=== PATIENT | male | born 1995 | race Caucasian/White ===

== ENCOUNTER 2020-11-18 10:19 | Emergency (ER) | payer OTHER ==
[~2020-11-18] VITALS: Ht 188 cm; Wt 100.0 kg
[2020-11-18 10:19] VITALS: BP 136/81
--- NOTE | 2020-11-18 10:57 | PHYS DOC ---
General Adult HPI: HPI: Patient is a 24-year-old male being seen in the ER for low back pain after lifting up 35 pounds today. Patient reports following the heavy lifting he felt a sharp pain. He rates his pain 9 out of 10. It radiates down his right leg. No treatment prior to arrival. Patient denies loss of bowel or bladder, saddle anesthesias, numbness in his lower extremities. Review of Systems: Review of Systems: 14 body systems of the review of systems have been reviewed. See HPI for pertinent positive and negative responses, otherwise all other systems are negative, nonpertinent or noncontributory Physical Exam: PE: Constitutional: Well developed, well nourished, no acute distress, non-toxic appearance. [] HENT: Normocephalic, atraumatic, bilateral external ears normal, oropharynx moist, no oral exudates, nose normal. [] Eyes: PERRL, EOMI, conjunctiva normal, no discharge. [] Neck: Normal range of motion, no bony cervical spinal tenderness, supple, no stridor. [] Cardiovascular:Heart rate regular rhythm, no murmur [] Lungs & Thorax: Bilateral breath sounds clear to auscultation [] Abdomen: Bowel sounds normal, soft, no tenderness, no masses, no pulsatile masses. [] Skin: Warm, dry, no erythema, no rash. [] Back: Bilateral lumbar paraspinal tenderness with palpation, no bony spinal tenderness, muscle spasm of right lumbar Extremities: No tenderness, no cyanosis, no clubbing, ROM intact, no edema. [] Neurologic: Alert and oriented X 3, normal motor function, normal sensory function, no focal deficits noted. [] Psychologic: Affect normal, judgement normal, mood normal. [] EKG: EKG: [] Radiology/Procedures: Radiology/Procedures: PROCEDURE: CT LUMBAR SPINE WO CONTRAST INDICATION: Reason: low back pain post heavy lifting / Spl. Instructions: / History: . COMPARISON: None. TECHNIQUE: Axial CT images obtained through the lumbar spine. One or more of the following individualized dose reduction techniques were utilized for this examination: 1. Automated exposure control; 2. Adjustment of the mA and/or kV according to patient size; 3. Use of iterative reconstruction technique. FINDINGS: No significant malalignment. No acute fracture is seen. There is some degenerative changes of the lumbar spine with disc protrusions and mild osteophyte formation at vertebral body endplates as well as ligamentum flavum and facet hypertrophy. For example at L2-3 there is a broad-based posterior disc protrusion with mild mass effect on the anterior aspect of the thecal sac and lateral recesses as well as facet and ligamentum flavum hypertrophy. Neural foramina are patent. At L3-4 there is facet and ligamentum flavum hypertrophy as well as a mild broad-based posterior disc protrusion with mass effect on the thecal sac with mild trefoil narrowing. Neural foramina are patent. At L4-5 there is broad-based posterior disc protrusion and osteophyte fo rmation as well as ligamentum flavum and facet hypertrophy with mild trefoil narrowing of central canal. Neural foramina are patent. IMPRESSION: * Degenerative changes of the lumbar spine with multiple disc protrusions and osteophyte formation as well as ligamentum flavum and facet hypertrophy. * No acute fracture or dislocation. Electronically signed by: Jose Borden MD (11/18/2020 11:28 AM) [id number] DICTATED AND SIGNED BY: JOSE BRODEN MD DATE: 11/18/20 112 CC: NING CABRERA APRN; PCP,UNKNOWN ~MTH0 0 [] Heart Score: C/O Chest Pain: No Risk Factors: Risk Factors: DM, Current or recent (<one month) smoker, HTN, HLP, family history of CAD, obesity. Risk Scores: Score 0 - 3: 2.5% MACE over next 6 weeks - Discharge Home Score 4 - 6: 20.3% MACE over next 6 weeks - Admit for Clinical Observation Score 7 - 10: 72.7% MACE over next 6 weeks - Early Invasive Strategies Course & Med Decision Making: Course & Med Decision Making Pertinent Labs and Imaging studies reviewed. (See chart for details) [] Patient is a 24-year-old male being seen in the ER for low back pain after lifting 35 pounds today. Patient had a CT scan of his lumbar spine that showed no acute findings. Patient treated with Toradol and orphenadrine injection. Following treatment, patient reports improvement in his symptoms and he is resting comfortably in the chair. Patient discharged home to take anti- inflammatory medications and he was prescribed muscle relaxers. Patient educated that this may cause drowsiness. Patient to follow-up with his primary care provider. I discussed with patient all findings and diagnostic testing as well as the need to follow-up with PCP for further evaluation and treatment or return to the ER if any new or worsening symptoms. Strict return precautions were also discussed at length. Patient voiced understanding and agreement with the plan. Patient is hemodynamically stable at the time of disposition. Dragon Disclaimer: Dragon Disclaimer: This electronic medical record was generated, in whole or in part, using a voice recognition dictation system. Departure Departure: Impression: Primary Impression: Muscle spasm Additional Impression: Low back pain Qualified Codes: M54.41 - Lumbago with sciatica, right side Disposition: HOME / SELF CARE / HOMELESS Condition: GOOD Referrals: PCP,UNKNOWN (PCP) Patient Instructions: Back Pain, Adult Additional Instructions: You were seen in the ER for low back pain. A CT scan was performed of your lumbar spine and it was negative for any acute findings. You were treated in the ER with an anti-inflammatory medication and muscle relaxer. You will be discharged home with a muscle relaxer. Please take these as directed. Please be aware that the Flexeril may cause drowsiness. You can also take anti- inflammatory medication such as ibuprofen and naproxen. Do not take this medication when you need to be alert and do not take with any alcohol. Please follow-up with your primary care provider tomorrow regarding your ER visit. If you develop worsening of your back pain, loss of bowel or bladder, numbness in your extremities or pelvis please return to the ER immediately. EMERGENCY DEPARTMENT GENERAL DISCHARGE INSTRUCTIONS Thank you for coming to [facility] (ED) today and trusting us with you care. We trust that you had a positivie experience in our Emergency Department. If you wish to speak to the department management, you may call the director at [phone]. YOUR FOLLOW UP INSTRUCTIONS ARE FOLLOWS: 1. Do you have a private Doctor? If you do not have a private doctor, please ask for a resource list of physicians or clinics that may be able to assist you with follow up care. 2. The Emergency Physician has interpreted your x-rays. The X-Ray specialist will also review them. If there is a change in the findings, you will be notified in 48 hours when at all possible. 3. A lab test or culture has been done, your results will be reviewed and you will be notified if you need a change in treatment. ADDITIONAL INSTRUCTIONS AND INFORMATION: 1. Your care today has been supervised by a physician who is specially trained in emergency care. Many problems require more than one evaluation for a complete diagnosis and treatment. We recommend that you schedule your follow up appointment as recommended to ensure complete treatment of you illness or injury. If you are unable to obtain follow up care and continue to have a problem, or if your condition worsens, we recommend that you return to the ED. 2. We are not able to safely determine your condition over the phone nor are we able to give sound medical advice over the phone. For these safety reasons, if you call for medical advice we will ask you to come to the ED for further evaluation. 3. If you have any questions regarding these discharge instructions please call the ED at [phone]. SAFETY INFORMATION: In the interest of safety, wellness, and injury prevention; we encourage you to wear your sealbelt, if you smoke; quite smoking, and we encourage family to use a protective helmet for bicycling and other sporting events that present an increased risk for head injury. IF YOUR SYMPTOMS WORSEN OR NEW SYMPTOMS DEVELOP, OR YOU HAVE CONCERNS ABOUT YOUR CONDITION; OR IF YOUR CONDITION WORSENS WHILE YOU ARE WAITING FOR YOUR FOLLOW UP APPOINTMENT; EITHER CONTACT YOUR PRIMARY CARE DOCTOR, THE PHYSICIAN WHOSE NAME AND NUMBER YOU WERE GIVEN, OR RETURN TO THE ED IMMEDIATELY. Scripts Cyclobenzaprine Hcl (CYCLOBENZAPRINE HCL) 5 Mg Tablet 1 TAB PO TID for muscle spasm for 5 Days, #15 TAB 0 Refills Prov: NING CABRERA APRN 11/18/20 NING CABRERA APRN Nov 18, 2020 10:57
[2020-11-18] MEDS ORDERED: ORPHENADRINE CITRATE 60 MG/2 ML VIAL. ONE (11:12)
[2020-11-18] MEDS ORDERED: KETOROLAC 60 MG/2 ML VIAL. IM ONE (11:12)
[2020-11-18] MEDS: KETOROLAC 60 MG/2 ML VIAL. IM ONE (11:17)
[2020-11-18] MEDS: ORPHENADRINE CITRATE 60 MG/2 ML VIAL. IM ONE (11:17)
--- NOTE | 2020-11-18 11:30 | RAD ---
INDICATION: Reason: low back pain post heavy lifting / Spl. Instructions: / History: . COMPARISON: None. TECHNIQUE: Axial CT images obtained through the lumbar spine. One or more of the following individualized dose reduction techniques were utilized for this examinat ion: 1. Automated exposure control; 2. Adjustment of the mA and/or kV according to patient size; 3 . Use of iterative reconstruction technique. FINDINGS: No significant malalignment. No acute fracture is seen. There is some degenerative changes of the lumbar spine with disc protrusions and mild osteophyte form ation at vertebral body endplates as well as ligamentum flavum and facet hypertrophy. For example at L2-3 there is a broad-based posterior disc protrusion with mild mass effect on the anterior aspect of the thecal sac and lateral recesses as well as facet and ligamentum flavum hypertrophy. Neural june kobe are patent. At L3-4 there is facet and ligamentum flavum hypertrophy as well as a mild broad-base d posterior disc protrusion with mass effect on the thecal sac with mild trefoil narrowing. Neural fo ramina are patent. At L4-5 there is broad-based posterior disc protrusion and osteophyte formation as well as ligamentum flavum and facet hypertrophy with mild trefoil narrowing of central canal. Neural foramina are patent. IMPRESSION: * Degenerative changes of the lumbar spine with multiple disc protrusions and osteophyte formation a s well as ligamentum flavum and facet hypertrophy. * No acute fracture or dislocation. Electronically signed by: Wilfrido Borden MD (11/18/2020 11:28 AM) [id number]
[2020-11-18] MEDS ORDERED: CYCL5TAB PO (12:00)
== END 2020-11-18 12:33 | disposition home or self-care (01) ==
LOC: ER 10:19
DX: M54.41 Lumbago with sciatica, right side (principal); M62.830 Muscle spasm of back
CPT/HCPCS: 72131; 96372; 99284; J1885; J2360

== ENCOUNTER 2020-12-09 22:18 | Emergency (ER) | payer OTHER ==
[~2020-12-09] VITALS: Ht 188 cm; Wt 106.0 kg
[~2020-12-09 22:18] MED LIST: CYCL5TAB PO
[2020-12-09 22:33] VITALS: BP 121/76
--- NOTE | 2020-12-09 22:46 | PHYS DOC ---
Past History Past Surgical History: No Surgical History Alcohol Use: None Adult General Chief Complaint Chief Complaint: FEVER HPI HPI Patient is a 25-year-old male, otherwise healthy who presents with a chief complaint of fever which came on shortly after getting his second Covid shot today. Denies any headache, pain or trouble swallowing, chest pain, shortness of breath, abdominal pain, nausea, vomiting, diarrhea. States he took 325 mg of Tylenol earlier but still has some body aches that came on after as well. 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 States he is able to eat and drink normally. States he is making urine and stool normally for him. Review of Systems Review of Systems Review of systems otherwise unremarkable except noted in HPI Physical Exam Physical Exam Constitutional: Well developed, well nourished, no acute distress, non-toxic appearance. [] HENT: Normocephalic, atraumatic, bilateral external ears normal, oropharynx moist, no oral exudates, nose normal. [] Eyes: conjunctiva normal, no discharge. [] Neck: Normal range of motion, no tenderness, supple, no stridor. [] Cardiovascular:Heart rate regular rhythm, no murmur [] Lungs & Thorax: Bilateral breath sounds clear to auscultation [] Abdomen: soft, no tenderness, no masses, no pulsatile masses. [] Skin: Warm, dry, no erythema, no rash. [] Neurologic: Alert and oriented X 3, normal motor function, normal sensory function, no focal deficits noted. [] Psychologic: Affect normal, judgement normal, mood normal. [] EKG EKG [] Radiology/Procedures Radiology/Procedures [] Heart Score C/O Chest Pain: No Risk Factors: Risk Factors: DM, Current or recent (<one month) smoker, HTN, HLP, family history of CAD, obesity. Risk Scores: Risk Factors: DM, Current or recent (<one month) smoker, HTN, HLP, family history of CAD, obesity. Course & Med Decision Making Course & Med Decision Making Patient is a 25-year-old male who presents with complaints of fevers at home to 100 and some body aches after getting his second Covid shot this morning Vital signs notable for sinus tachycardia. Physical exam noted above. Patient given Percocet, ibuprofen and Benadryl. Discussed all findings with patient. Discussed symptom management at home. Advised to call his primary care physician in the morning to update. Gave return precautions to the ED. Patient grateful, verbalized understanding and agreed with plan of discharge. Charles Disclaimer Charles Disclaimer This electronic medical record was generated, in whole or in part, using a voice recognition dictation system. Departure Departure: Impression: Primary Impression: Post-vaccination fever Disposition: HOME / SELF CARE / HOMELESS Condition: GOOD Referrals: PCP,UNKNOWN (PCP) AJ ROPER MD Patient Instructions: Fever Additional Instructions: Thank you for coming into the emergency department tonight and allowing us to take care of you. Please read all the attached information carefully to go over some of the things we discussed. As we discussed, after vaccine you can get symptoms that are similar to other viral illnesses such as the flu. Please begin a Tylenol, ibuprofen and Benadryl regimen as we discussed. Please be sure to eat and drink plenty of fluids. Please call your doctor in the morning to update on ED visit and set up a follow-up visit. Please come back to the ED with new or concerning symptoms as discussed. BREANNE GUILLEN MD Dec 09, 2020 22:46
[2020-12-09] MEDS: diphenhydrAMINE HCL 25 MG CAPSULE PO ONE (23:07)
[2020-12-09] MEDS: IBUPROFEN 600 MG TABLET. PO ONE (23:08)
[2020-12-09] MEDS: oxyCODONE/APAP 5/325 1 TAB TABLET PO ONE (23:08)
== END 2020-12-09 23:12 | disposition home or self-care (01) ==
LOC: ER 22:18
DX: R50.83 Postvaccination fever (principal); T50.B95A Adverse effect of other viral vaccines, initial encounter; Y92.89 Other specified places as the place of occurrence of the external cause
CPT/HCPCS: 99284; Q0163

== ENCOUNTER 2021-04-18 12:16 | Emergency (ER) | payer OTHER ==
[~2021-04-18] VITALS: Ht 185.4 cm; Wt 105.0 kg
[2021-04-18] MEDS ORDERED: HYDROcodone/APAP 5/325MG 1 TAB TABLET PO ONE (12:30)
--- NOTE | 2021-04-18 12:59 | RAD ---
EXAM: Left ankle, 3 views; left foot, 3 views; left tibia and fibula, 2 views; left knee, 4 views. HISTORY: Trauma. Pain. COMPARISON: None. FINDINGS: Left ankle and foot: 3 views of the left ankle and foot are obtained. There is no fracture, dislocati on or subluxation. The ankle mortise is intact. There is no osteochondral lesion. There is ossific de nsity along the anterior talus likely due to an osseous ridge. No avulsion fracture is seen. Left tibia and fibula: 2 views of the tibia and fibula are obtained. There is no fracture, dislocatio n or subluxation. There is no periosteal reaction or suspicious osseous lesion. Left knee: 4 views of the left knee are obtained. There is no fracture, dislocation or subluxation. T here is no joint effusion. There is a tiny suspected soft tissue calcification or ossicle inferior to the patella. IMPRESSION: No acute osseous finding. Electronically signed by: Elyssa Barba MD (04/18/2021 12:57 PM) [id number]
--- NOTE | 2021-04-18 13:14 | PHYS DOC ---
Past History Past Surgical History: No Surgical History Alcohol Use: Occasionally General Adult EDM: Chief Complaint: ANKLE PROBLEM HPI: HPI: 25 yo M with no significant PMH presents the ED with complaints of left lateral ankle pain after patient rolled his ankle while running outside just prior to arrival. Reports pain is worse with weightbearing, plantarflexion and eversion. No prior history of antibiotics or fluoroquinolones. H/o prior left ankle sprain-no h/o lower extremity fracture. Reports mild medial left knee pain, no hip pain. Reports he fell and hit his head did not lose consciousness. Is not influence of any alcohol or drugs. Takes no routinely prescribed medications. Review of Systems: Review of Systems: Constitutional: Denies fever or chills Eyes: Denies change in visual acuity HENT: Denies nasal congestion or sore throat Respiratory: Denies cough or shortness of breath Cardiovascular: Denies chest pain or edema GI: Denies nausea or vomiting : Denies incontinence or saddle anesthesia Musculoskeletal: Denies back pain or joint pain Integument: Denies rash or diaphoresis Neurologic: Denies headache or neck pain Endocrine: Denies polyuria or polydipsia Lymphatic: Denies swollen glands Psychiatric: Denies depression or anxiety Current Medications: Current Meds: Current Medications Medications (Trade) Dose Ordered Sig/Yovany Start Time Stop Time Status Last Admin Dose Admin Acetaminophen/ Hydrocodone Bitart (Lortab 5/325) 1 tab 1X ONCE 04/18/21 12:30 04/18/21 12:32 DC 04/18/21 12:34 1 TAB Allergies: Allergies: Allergies Coded Allergies Type Severity Reaction Last Updated Verified No Known Drug Allergies 04/18/21 No Physical Exam: PE: Constitutional: Well developed, well nourished, no acute distress, non-toxic appearance. HENT: Normocephalic, atraumatic, Eyes: EOMI, conjunctiva normal, no discharge. Neck: Normal range of motion, supple, Cardiovascular: S1/2 present, regular rhythm Lungs & Thorax: Speaking in full sentences, bilateral equal chest rise, no tachypnea or increased work of breathing Abdomen: soft, no hip tenderness Skin: Warm, dry, no erythema, no rash. [] Back: No midline spinal step-offs or tenderness, no CVA tenderness. [] Extremities: Tender and swollen left lateral malleoli-present with a golf ball in size, nonreproducible left medial knee pain, no ligamentous laxity on range of motion of left knee, is able to plantarflex/dorsiflex/sheela and invert left ankle, DP and PT pulses intact no cyanosis, no lower extremity edema, no fibular head tenderness, Neurologic: Alert and oriented X 3, no focal deficits noted. [] Psychologic: Affect normal, judgement normal, mood normal. [] Current Patient Data: Vital Signs: Vital Signs Date Time Temp Pulse Resp B/P (MAP) Pulse Ox O2 Delivery O2 Flow Rate FiO2 04/18/21 12:17 97.7 92 18 144/84 (104) 98 Room Air EKG: EKG: [] Radiology/Procedures: Radiology/Procedures: IMAGING REPORT Signed PATIENT: VIK MOODY ACCOUNT: [id number] : 1995 LOCATION: ER AGE: 25 SEX: M EXAM STATUS: REG ER ORD. PHYSICIAN: DEE CHEUNG DO REASON: left ankle pain PROCEDURE: ANKLE LEFT 3V EXAM: Left ankle, 3 views; left foot, 3 views; left tibia and fibula, 2 views; left knee, 4 views. HISTORY: Trauma. Pain. COMPARISON: None. FINDINGS: Left ankle and foot: 3 views of the left ankle and foot are obtained. There is no fracture, dislocation or subluxation. The ankle mortise is intact. There is no osteochondral lesion. There is ossific density along the anterior talus likely due to an osseous ridge. No avulsion fracture is seen. Left tibia and fibula: 2 views of the tibia and fibula are obtained. There is no fracture, dislocation or subluxation. There is no periosteal reaction or suspicious osseous lesion. Left knee: 4 views of the left knee are obtained. There is no fracture, dislocation or subluxation. There is no joint effusion. There is a tiny suspected soft tissue calcification or ossicle inferior to the patella. IMPRESSION: No acute osseous finding. Electronically signed by: Elyssa Greenwood MD (04/18/2021 12:57 PM) [id number] DICTATED AND SIGNED BY: ELYSSA GREENWOOD MD DATE: 04/18/21 1142 CC: SABINA HENNESSY MD; VOHS,DEE M DO ~MTH0 0 Heart Score: C/O Chest Pain: No Risk Factors: Risk Factors: DM, Current or recent (<one month) smoker, HTN, HLP, family history of CAD, obesity. Risk Scores: Score 0 - 3: 2.5% MACE over next 6 weeks - Discharge Home Score 4 - 6: 20.3% MACE over next 6 weeks - Admit for Clinical Observation Score 7 - 10: 72.7% MACE over next 6 weeks - Early Invasive Strategies Course & Med Decision Making: Course & Med Decision Making Pertinent Labs and Imaging studies reviewed. (See chart for details) Concern for left ankle sprain, no obvious fracture. No signs of head trauma. Pt provided with splint and crutches. Recommend conservative management, rice instructions and otc analgesia. Will discharge home with strict ED return precautions were given for severe pain, neurologic deficits or repeat injury. Encouraged urgent outpatient follow-up with PMD and orthopedic surgery. Life- threatening processes were considered but are low suspicion at this time, given history, physical exam and ED workup. Pt was educated on all prescription medications and adverse effects. All patient's questions were answered and pt was stable at time of discharge. Life/limb-threatening differential includes but is not limited to, trauma (fracture, dislocation, laceration, compartment syndrome, tendon or ligament injury), neurovascular injury or deficitcva/tia, infection (osteomyelitis, abscess, cellulitis, septic arthritis, necrotizing fasciitis), deep vein thrombosis, renal/cardiac/liver disease, medication adverse effect, lymphedema/anasarca, vascular insufficiency or malignancy, I have spoken with the patient and/or caregivers. I explained the patient's condition, diagnoses and treatment plan based on the information available to me at this time. I have answered the patient and/or caregiver's questions and addressed any concerns. The patient and/or caregivers have a good understanding of patient's diagnosis, condition and treatment plan as can be expected at this point. Vital signs have been stable. Patient's condition is stable and appropriate for discharge from the emergency department. Patient will pursue further outpatient evaluation with primary care physician or other designated or consulting physician as outlined in the discharge instructions. The patient and/or caregivers are agreeable to this plan of care and follow-up instructions have been explained in detail. The patient and/or caregivers have received these instructions in written form and have expressed an understanding of the discharge instructions. The patient and/or caregivers are aware that any significant change of condition or worsening of symptoms should prompt immediate return to this or the closest emergency department or call to [facility] Disclaimer: Charles Disclaimer: This electronic medical record was generated, in whole or in part, using a voice recognition dictation system. Departure Departure: Impression: Primary Impression: Left ankle sprain Disposition: HOME / SELF CARE / HOMELESS Condition: STABLE Referrals: SABINA HENNESSY MD (PCP) Patient Instructions: Ankle Sprain, Crutch Use Additional Instructions: FOLLOW UP WITH ORTHOPEDICS: FOR DEFINITIVE MANAGEMENT Orthopaedic Surgery [address] [place] [address] EMERGENCY DEPARTMENT GENERAL DISCHARGE INSTRUCTIONS Thank you for coming to [facility] (ED) today and trusting us with you care. We trust that you had a positivie experience in our Emergency Department. If you wish to speak to the department management, you may call the director at [phone]. YOUR FOLLOW UP INSTRUCTIONS ARE FOLLOWS: 1. Do you have a private Doctor? If you do not have a private doctor, please ask for a resource list of physicians or clinics that may be able to assist you with follow up care. 2. The Emergency Physician has interpreted your x-rays. The X-Ray specialist will also review them. If there is a change in the findings, you will be notified in 48 hours when at all possible. 3. A lab test or culture has been done, your results will be reviewed and you will be notified if you need a change in treatment. ADDITIONAL INSTRUCTIONS AND INFORMATION: 1. Your care today has been supervised by a physician who is specially trained in emergency care. Many problems require more than one evaluation for a complete diagnosis and treatment. We recommend that you schedule your follow up appointment as recommended to ensure complete treatment of you illness or injury. If you are unable to obtain follow up care and continue to have a problem, or if your condition worsens, we recommend that you return to the ED. 2. We are not able to safely determine your condition over the phone nor are we able to give sound medical advice over the phone. For these safety reasons, if you call for medical advice we will ask you to come to the ED for further evaluation. 3. If you have any questions regarding these discharge instructions please call the ED at [phone]. SAFETY INFORMATION: In the interest of safety, wellness, and injury prevention; we encourage you to wear your sealbelt, if you smoke; quite smoking, and we encourage family to use a protective helmet for bicycling and other sporting events that present an increased risk for head injury. IF YOUR SYMPTOMS WORSEN OR NEW SYMPTOMS DEVELOP, OR YOU HAVE CONCERNS ABOUT YOUR CONDITION; OR IF YOUR CONDITION WORSENS WHILE YOU ARE WAITING FOR YOUR FOLLOW UP APPOINTMENT; EITHER CONTACT YOUR PRIMARY CARE DOCTOR, THE PHYSICIAN WHOSE NAME AND NUMBER YOU WERE GIVEN, OR RETURN TO THE ED IMMEDIATELY. DEE MONTEZ DO Apr 18, 2021 13:14
[2021-04-18 13:20] VITALS: BP 140/80
== END 2021-04-18 14:38 | disposition home or self-care (01) ==
LOC: ER 12:16
DX: S93.402A Sprain of unspecified ligament of left ankle, initial encounter (principal); M25.562 Pain in left knee; X50.9XXA Other and unspecified overexertion or strenuous movements or postures, initial encounter; Y93.02 Activity, running; Y92.89 Other specified places as the place of occurrence of the external cause; Y99.8 Other external cause status
CPT/HCPCS: 29515; 73564; 73590; 73610; 73630; 99284

== ENCOUNTER 2021-05-17 02:32 | Emergency (ER) | payer OTHER ==
[~2021-05-17] VITALS: Ht 188 cm; Wt 106.0 kg
--- NOTE | 2021-05-17 03:39 | PHYS DOC ---
Past History Past Surgical History: No Surgical History Alcohol Use: Occasionally General Adult EDM: Chief Complaint: FLANK PAIN HPI: HPI: ".. I ve had chest pain since about 1600.. and some fever and chills. ... 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 Patient does have some burning chest pain with cough. Patient does smoke. No history of immunosuppression. No history of recent travel or Td Y. Is up-to-date with vaccinations. Did have significant myalgia and malaise with second Covid vaccination. Patient is not currently a guard of anybody that is sick in the custodial. Patient has been in service 2 years. Patient does not know family history. Pt. does have hx of recent Lt. ankle sprain. Review of Systems: Review of Systems: Constitutional: History of fever or chills Eyes: Denies change in visual acuity HENT: Denies nasal congestion or sore throat Respiratory: History of a nonproductive cough and chest wall pain Cardiovascular: Chest wall chest pain GI: Denies abdominal pain, nausea, vomiting, bloody stools or diarrhea : Denies dysuria Musculoskeletal: History of generalized myalgia and arthralgia Integument: Denies rash Neurologic: Denies headache, focal weakness or sensory changes Endocrine: Denies polyuria or polydipsia Lymphatic: Denies swollen glands Psychiatric: Denies depression or anxiety Family History: Family History: Patient states his mother was in custodial and he was raised in foster care does not know her medical history. Does not know any information on his father. Current Medications: Current Meds: See nursing for home meds Allergies: Allergies: Allergies Coded Allergies Type Severity Reaction Last Updated Verified No Known Drug Allergies 04/18/21 No Physical Exam: PE: Constitutional: Well developed, well nourished, moderate acute distress, non- toxic appearance. [] HENT: Normocephalic, atraumatic, bilateral external ears normal, oropharynx moist, no oral exudates, nose normal. [] Eyes: PERRLA, EOMI, conjunctiva normal, no discharge. [] Neck: Normal range of motion, no tenderness, supple, no stridor. [] Cardiovascular: Tachycardia heart rate regular rhythm, no murmur [] Lungs & Thorax: Bilateral breath sounds equal apex with few scattered wheezes but appreciable rhonchi posterior chest wall on right with auscultation [] patient occasionally did have a nonproductive cough. Abdomen: Bowel sounds normal, soft, no tenderness, no masses, no pulsatile masses. [] Skin: Warm, dry, no erythema, no rash. [] Tattoos. Back: No tenderness, no CVA tenderness. [] Extremities: No tenderness, no cyanosis, no clubbing, ROM intact, no edema. No cording appreciated. Neurologic: Alert and oriented X 3, normal motor function, normal sensory function, no focal deficits noted. [] Psychologic: Affect anxious., judgement normal, mood normal. [] Current Patient Data: Vital Signs: Vital Signs Date Time Temp Pulse Resp B/P (MAP) Pulse Ox O2 Delivery O2 Flow Rate FiO2 05/17/21 02:40 101.7 117 18 133/63 (86) 99 Room Air EKG: EKG: My interpretation of EKG shows a sinus tachycardia 116 bpm. No other acute morphology appreciated. Time of EKG is 0250 hrs. [] Radiology/Procedures: Radiology/Procedures: My interpretation of chest x-ray shows no definitive findings of large consolidation or infiltrates. There may be some findings of patchy nonspecific infiltrates. Unable appreciate retrocardiac area. See formal report when available [] Heart Score: C/O Chest Pain: Yes HEART Score for Chest Pain: HEART Score for Chest Pain Response (Comments) Value History Slighlty/Non-Suspicious 0 ECG Normal 0 Age < 45 0 Risk Factors 1 or 2 Risk Factors 1 Troponin < Normal Limit 0 Total 1 Risk Factors: Risk Factors: DM, Current or recent (<one month) smoker, HTN, HLP, family history of CAD, obesity. Risk Scores: Score 0 - 3: 2.5% MACE over next 6 weeks - Discharge Home Score 4 - 6: 20.3% MACE over next 6 weeks - Admit for Clinical Observation Score 7 - 10: 72.7% MACE over next 6 weeks - Early Invasive Strategies Course & Med Decision Making: Course & Med Decision Making Pertinent Labs and Imaging studies reviewed. (See chart for details) Push fluids. Take Tylenol and ibuprofen for discomfort and fever. Take Zithromax 250 a day for the next 5 days. Self isolate the next 5 days. Follow- up with Alex. Stop smoking. Impression: 1. Bronchitis/atypical pneumonia 2. Fever 3. Viral syndrome 4. Mild elevation lactic acid 2.7 5. Tobacco use [] Dragon Disclaimer: Dragon Disclaimer: This electronic medical record was generated, in whole or in part, using a voice recognition dictation system. Departure Departure: Referrals: SABINA HENNESSY MD (PCP) Scripts Azithromycin (ZITHROMAX) 250 Mg Tablet 250 MG PO DAILY for ANTI-BIOTIC for 5 Days, #5 TAB 0 Refills Prov: DANIELE MAS MD 05/17/21 Charles Disclaimer This chart was dictated in whole or in part using Voice Recognition software in a busy, high-work load, and often noisy Emergency Department environment. It may contain unintended and wholly unrecognized errors or omissions. Dragon Disclaimer This chart was dictated in whole or in part using Voice Recognition software in a busy, high-work load, and often noisy Emergency Department environment. It may contain unintended and wholly unrecognized errors or omissions. DANIELE MAS MD May 17, 2021 03:39
[2021-05-17] MEDS ORDERED: IV RINGERS SOLUTION,LACTATED 1,000 ML IV SCH (04:00)
[2021-05-17 04:04] LABS: BASO % 0 % (0-3); EOS % 0 % (0-3); HEMOGLOBIN 15.7 g/dL (13.0-17.5); LYMPH # 0.6 x10^3/uL (1.0-4.8); LYMPH % 6 % (24-48); MEAN CORPUSCULAR HEMOGLOBIN 31 pg (25-35); MEAN CORPUSCULAR HGB CONC 34 g/dL (31-37); MEAN CORPUSCULAR VOLUME 90 fL (79-100); MONO # 0.5 x10^3/uL (0.0-1.1); MONO % 5 % (0-9); NEUT # 8.8 x10^3uL (1.8-7.7); NEUT % 89 % (31-73); PLATELET COUNT 296 x10^3/uL (140-400); RED BLOOD COUNT 5.14 x10^6/uL (4.30-5.70); RED CELL DISTRIBUTION WIDTH 13.3 % (11.5-14.5); WHITE BLOOD COUNT 9.8 x10^3/uL (4.0-11.0)
[2021-05-17] MEDS ORDERED: ACETAMINOPHEN 500 MG TABLET PO ONE ×2 (04:08→04:15)
[2021-05-17 04:12] LABS: ANION GAP 11 (6-14); BLOOD UREA NITROGEN 18 mg/dL (8-26); CALCIUM 8.6 mg/dL (8.5-10.1); CARBON DIOXIDE 26 mmol/L (21-32); CHLORIDE 100 mmol/L (98-107); CREATININE 1.2 mg/dL (0.7-1.3); GLUCOSE 125 mg/dL (70-99); POTASSIUM 3.6 mmol/L (3.5-5.1); SODIUM 137 mmol/L (136-145)
[2021-05-17 04:26] LABS: ALBUMIN 3.9 g/dL (3.4-5.0); ALK PHOS 57 U/L (46-116); ALT (SGPT) 27 U/L (16-63); AST (SGOT) 10 U/L (15-37); DIRECT BILIRUBIN 0.1 mg/dL (0.0-0.2); LIPASE 50 U/L (73-393); MAGNESIUM 1.5 mg/dL (1.8-2.4); TOTAL BILIRUBIN 0.8 mg/dL (0.2-1.0); TOTAL PROTEIN 7.5 g/dL (6.4-8.2)
[2021-05-17 04:45] LABS: INFLUENZA A PATIENT NEGATIVE (NEGATIVE); INFLUENZA B PATIENT NEGATIVE (NEGATIVE)
[2021-05-17 05:00] VITALS: BP 131/68
--- NOTE | 2021-05-17 05:04 | RAD ---
EXAMINATION: Chest radiograph. VIEWS: 1 COMPARISON: None INDICATION:25 years, Male, chest pain, fever. FINDINGS: Normal cardiomediastinal silhouette. No focal consolidation. No pleural effusion or pneumothorax. No acute osseous process. IMPRESSION: No acute cardiopulmonary process. Electronically signed by: Ziggy Mariscal MD (05/17/2021 5:01 AM) [facility]
[2021-05-17] MEDS ORDERED: AZIT250T PO (05:09)
[2021-05-17] MEDS ORDERED: AZITHROMYCIN 250 MG TABLET. PO ONE (05:15)
--- NOTE | 2021-05-17 06:45 | EKG ---
[address] [address] Test Date: 2021-05-17 Test Time: 02:50:35 Pat Name: VIK MOODY Department: Room: Gender: M [employer] Operator: : 1995 Requested By: DANIELE MAS Order Number: [id number] Reading MD: Franck Kauffman Measurements Intervals [place] Rate: 116 P: 51 NM: 140 QRS: 62 QRSD: 80 T: 14 QT: 298 QTc: 420 Interpretive Statements SINUS TACHYCARDIA Electronically Signed On 05-19-2021 8:39:37 PHARMACEUTICAL OFFICER by Franck Kauffman
== END 2021-05-17 05:27 | disposition home or self-care (01) ==
LOC: ER 02:32
DX: B34.9 Viral infection, unspecified (principal); R74.02 Elevation of levels of lactic acid dehydrogenase [LDH]; Z72.0 Tobacco use; Z20.822 Contact with and (suspected) exposure to COVID-19
CPT/HCPCS: 36415; 71045; 80048; 80076; 82550; 83605; 83690; 83735; 83880; 84443; 84484; 85025; 85379; 85610; 85730; 87040; 87428; 93005; 96360; 99285; J7120